=== PATIENT | male | born 1950 | race Caucasian/White ===

== ENCOUNTER 2016-10-10 13:46 | Outpatient (CLI) | payer OTHER ==
--- NOTE | 2016-10-10 15:42 | DIAGNOSTIC IMAGING REPORT ---
PROCEDURE: US VENOUS - LEFT EXT INDICATION: LEFT LEG EDEMA TECHNIQUE: Duplex sonography of the deep venous system in the left lower extremity was performed. Compression and augmentation techniques were used. COMPARISON: 11/12/2014 FINDINGS: Each interrogated segment of deep vein from the common femoral vein into the calf veins demonstrates normal compressibility, augmentation and/or color Doppler flow without filling defect. In the medial popliteal fossa, there is a mainly anechoic, vertically oriented, ovoid structure measuring 5.1 x 1.6 x 3.6 cm consistent with an enlarging Zuniga's cyst, larger compared to the previous study. There is a small amount of debris within this cyst. No suspicious vascularity. IMPRESSION: 1. No deep venous thrombosis in the left lower extremity. 2. Chronic, enlarging, debris containing Zuniga's cyst.
== END 2016-10-10 23:00 ==
LOC: US SRH 13:46
DX: R60.0 Localized edema (principal); M71.22 Synovial cyst of popliteal space [Baker], left knee